=== PATIENT | female | born 1965 | race Caucasian/White ===

== ENCOUNTER 2022-04-10 10:16 | Day surgery (SDC) | payer OTHER, SELFPAY ==
[2022-04-10] VITALS (8 sets, daily range): BP systolic 138–168; BP diastolic 69–93; PULSE 69–79; RESP 11–16; TEMP 36.3–37; O2SAT 97–100; BMI 46.7
--- NOTE | ~2022-04-10 | XR_ITS ---
EXAMINATION: XR abdomen/kub 1V INDICATION: Renal stone TECHNIQUE: Supine views of the abdomen were obtained on 2 radiographs. COMPARISON: None FINDINGS: There appears to be a 2.1 cm stone of the proximal right ureter projecting between the righ t L4 and L5 transverse processes. Suture lines are noted in the right upper quadrant. There is mild l umbar spondylosis. The visualized lung bases are clear. IMPRESSION: 1. Probable 2.1 cm stone of the proximal right ureter. Reviewed, dictated and finalized at location B. [employer]
--- NOTE | 2022-04-10 08:33 | PC.NURSE ---
Report to the Outpatient Waiting Room, entrance under the green pavilion located off [facility], at time 1030 on date 04/10/22. Planned Procedure Time: 1230. Time changes happen often and if your time is changed the preop area will call you the afternoon before. - You and your visitor will be asked to self-screen and do not enter if you have any COVID symptoms. - Only one visitor is requested with a max of two and NO children visitors are allowed at this time. - The patient visitor may be requested to leave or wait in car when not with patient due to distancing restrictions. - A mask is REQUIRED within the hospital. Patients may have clear liquids (water, carbonated beverages, clear teas, apple juice) until 3 hours prior to surgery with a maximum of 20 ounces. - No food from midnight until time of surgery Take the following medications with a SIP of water the morning of surgery: SYNTHROID Medications to discontinue per physician: VITAMINS Date to take last dose: NO MORE UNTIL AFTER SURGERY Please no make-up, nail slovenian, hairspray, perfume, deodorant, or body powder the day of surgery. No jewelry (including any body piercings) or valuables the day of surgery, leave them at home. Please take a shower or bath the night before, or the morning of, surgery with an antibacterial soap. Wear comfortable, loose fitting clothing. - Jewelry must be removed prior to entering the operating room. Rings and piercings that are not removed may be cut off. - The hospital will not accept responsibility for valuables. - Please leave all valuables, including medications, at home the day of surgery. If you are going home after surgery, a licensed dolly driver must drive you home. - NO public transportation without another adult if you receive anesthesia. - We recommend that an adult stay with you for 24 hours following discharge. - We also recommend that you do not drive, make important decision, drink alcoholic beverages, or take any drugs that were not prescribed by your health care provider for at least 24 hours after your discharge time. Follow any additional instructions given to you from your surgeon. If you or anyone in your household have experienced Covid symptoms in the past week, please notify your surgeon or the nurse liaison at the phone number below for possible testing. Telephone instructions given to PT - NORM ANDERSON and asked if any additional questions and then verbalized understanding. Patient advised to call surgeon office or pre surgery nurse liaison [phone] if any additional questions.
--- NOTE | 2022-04-10 11:08 | ECG_ITS ---
Measurements Intervals [place] Rate: 70 P: 51 NV: 190 QRS: -5 QRSD: 84 T: 47 QT: 405 QTc: 437 Interpretive Statements SINUS RHYTHM NORMAL ELECTROCARDIOGRAM NO PREVIOUS ECG AVAILABLE FOR COMPARISON Electronically Signed On 04-10-2022 14:59:00 [employer] by Ramsey Calhoun M.D.
[2022-04-10 11:15] LABS: Add Urine Microscopic? YES; Appearance Urine Clear (Clear); Bilirubin Urine Negative (Negative); Blood Urine Trace-Intact (Negative); Color Urine Yellow (Yellow); Glucose Urine UA Negative (Negative); Ketones Urine Negative (Negative); Leukocyte Esterase Ur Trace LEU/UL (Negative); Nitrate Urine Negative (Negative); Protein Urine 1+ mg/dL (Negative); Specific Grav Ur 1.025 (1.001-1.035); Urobilinogen Urine 0.2 mg/dL (<2.0)
[2022-04-10 11:23] LABS: INR 0.9; Prothrombin Time 11.8 Seconds (11.1-14.7)
[2022-04-10 11:24] LABS: Anion Gap 10 mmol/L (8-16); Bacteria Urine Trace /hpf; Blood Urea Nitrogen 20 mg/dL (7-17); Calcium 9.2 mg/dL (8.4-10.2); Carbon Dioxide 22 mmol/L (22-30); Chloride 111 mmol/L (98-107); Estimated CRCL calculation 66 ml/min; Estimated Glomerular Filt Rate 57; Glucose 100 mg/dL (65-110); Mucus Urine Rare /lpf; Partial Thromboplastin Time 24.8 SECONDS (22.3-36.8); Potassium 4.2 mmol/L (3.4-5.0); RBC Urine 0-2 /hpf (0-2); Sodium 143 mmol/L (137-145); Squamous Epithelial Cell Urine Occasional /hpf (Few)
--- NOTE | 2022-04-10 11:31 | P.HP_ITS ---
History of Present Illness History of Present Illness Consent: Risks, benefits, and alternatives have been discussed and questions answered. Patient agrees to proceed with procedure. Chief complaint: ureteral Stone Narrative: Liberty Gutierrez is a 56 year old female With a history of recurrent urolithiasis. Approximately 11-12 years ago she underwent ESWL. More recently, the past several months, she has had ureteroscopy with laser lithotripsy and extraction of a fairly large right ureteral stone. She now has a residual 1 cm right renal pelvic stone and presents for right ESWL. She is aware the risk including, but not limited to, adverse cardiopulmonary events, persistent stone fragments requiring additional intervention, hematuria and perinephric hematoma. She is having intermittent moderate right flank pain without fevers chills or gross hematuria. Review of Systems Cardiovascular: Cardiovascular: Denies chest pain, Denies lightheadedness, D enies palpitations and Denies dyspnea Respiratory: Respiratory: Denies dyspnea Gastrointestinal: Gastrointestinal: Denies diarrhea, Denies nausea and Denies vomiting Genitourinary: Genitourinary: Denies hematuria and Denies dysuria Endocrine: Endocrine: Denies palpitations PMFSH Social History Social History Smoking status: Never smoker Alcohol intake: current Drinks per week: 2 Substance use: never Substance use type: does not use Living arrangements: with family Spiritual care concerns: No Meds Home Medications and Allergies Home Medications Medication Instructions Recorded Confirmed Type allopurinol 100 mg tablet 100 mg PO DAILY 04/10/22 04/10/22 History atorvastatin 40 mg tablet (Lipitor) 40 mg PO HS 04/10/22 04/10/22 History escitalopram oxalate 10 mg tablet 10 mg PO HS 04/10/22 04/10/22 History (Lexapro) furosemide 20 mg tablet 20 mg PO DAILY 04/10/22 04/10/22 History levothyroxine 200 mcg tablet 200 mcg PO DAILY 04/10/22 04/10/22 History (Synthroid) metformin 500 mg tablet 500 mg PO BID 04/10/22 04/10/22 History omega 3-lst-lxk-fish oil 1,000 mg 1 cap PO DAILY 04/10/22 04/10/22 History (120 mg-180 mg) capsule (Fish Oil) potassium citrate 15 mEq (1,620 15 meq PO DAILY 04/10/22 04/10/22 History mg) tablet,extended release Allergies Allergy/AdvReac Type Severity Reaction Status Date / Time No Known Allergies Allergy Verified 04/10/22 08:22 Vital Signs Vital Signs - 24 hr 04/10/22 11:11 Temperature 98.6 F Pulse Rate 72 Respiratory Rate 14 Blood Pressure 138/86 Pulse Oximetry 97 Oxygen Delivery Room Air Exam Const: General: no acute distress Resp: Effort & Inspection: normal respiratory effort GI: Inspection: non-distended GI Palp: No abdominal tenderness and No Guarding due to palpation present (GI) Auscultation: normal bowel sounds Assessment and Plan Assessment and plan (1) Right renal stone: Code(s): N20.0 - Calculus of kidney Status: Acute Assessment and Plan: * Right ESWL
--- NOTE | 2022-04-10 11:37 | WPDHPUPDATE1 ---
History and Physical Update Update Date/Time: 04/10/22 11:37 History and Physical has been reviewed, including an updated exam of the patient. There are NO changes in the patient's condition. Risks, benefits, and alternatives have been discussed and questions answered. Patient agrees to proceed with procedure. Given size of right renal stone (1cm) will plan cystoscopy with right ureteral stent placement at time of right ESWL.
--- NOTE | 2022-04-10 11:44 | WPDANESEPPF ---
Anes - Initial Pre Proc Eval Procedure: Operation Date: 04/10/22 12:30 Proposed Procedures p Right Extracorporeal Shock Wave Lithotripsy - Vidal Urrutia MD s Cystoscopy, Right Retrograde Pyelogram, Right Stent Placement - Vidal Urrutia MD Date/Time: 04/10/22 11:44 Surgeon: Vidal Urrutia MD Pre Op Diagnosis: ureteral Stone Patient Data Age: 56 Gender: F Height: 1.59 m Weight: 115.5 kg Last Vital Signs Temp 98.6 F 04/10/22 11:11 Pulse 72 04/10/22 11:11 Resp 14 04/10/22 11:11 BP 138/86 04/10/22 11:11 Pulse Ox 97 04/10/22 11:11 O2 Del Method Room Air 04/10/22 11:11 Allergies Allergy/AdvReac Type Severity Reaction Status Date / Time No Known Allergies Allergy Verified 04/10/22 08:22 Home Medications Medication Instructions Recorded Confirmed Type allopurinol 100 mg tablet 100 mg PO DAILY 04/10/22 04/10/22 History atorvastatin 40 mg tablet (Lipitor) 40 mg PO HS 04/10/22 04/10/22 History escitalopram oxalate 10 mg tablet 10 mg PO HS 04/10/22 04/10/22 History (Lexapro) furosemide 20 mg tablet 20 mg PO DAILY 04/10/22 04/10/22 History levothyroxine 200 mcg tablet 200 mcg PO DAILY 04/10/22 04/10/22 History (Synthroid) metformin 500 mg tablet 500 mg PO BID 04/10/22 04/10/22 History omega 2-mpp-luz-fish oil 1,000 mg 1 cap PO DAILY 04/10/22 04/10/22 History (120 mg-180 mg) capsule (Fish Oil) potassium citrate 15 mEq (1,620 15 meq PO DAILY 04/10/22 04/10/22 History mg) tablet,extended release Laboratory Tests 04/10/22 04/10/22 04/10/22 11:04 11:04 11:04 PT 11.8 Seconds Seconds (11.1-14.7) INR 0.9 APTT 24.8 SECONDS SECONDS (22.3-36.8) Sodium 143 mmol/L mmol/L (137-145) Potassium 4.2 mmol/L mmol/L (3.4-5.0) Chloride 111 mmol/L H mmol/L (98-107) Carbon Dioxide 22 mmol/L mmol/L (22-30) Anion Gap 10 mmol/L mmol/L (8-16) BUN 20 mg/dL H mg/dL (7-17) Creatinine 1.00 mg/dL mg/dL (0.7-1.0) Estim Creat Clear Calc 66 ml/min ml/min Estimated GFR 57 L (59 - ) Glucose 100 mg/dL mg/dL (65-110) Calcium 9.2 mg/dL mg/dL (8.4-10.2) Urine Color Yellow (Yellow) Urine Appearance Clear (Clear) Urine pH 6.0 (5.0-9.0) Ur Specific [place] 1.025 (1.001-1.035) Urine Protein 1+ mg/dL H mg/dL (Negative) Urine Glucose (UA) Negative mg/dL mg/dL (Negative) Urine Ketones Negative mg/dL mg/dL (Negative) Ur Blood (Man) Trace-intact (Negative) Urine Nitrate Negative (Negative) Urine Bilirubin Negative (Negative) Urine Urobilinogen 0.2 mg/dL mg/dL (<2.0) Leukocyte Esterase Rfl Trace DONNA/UL H DONNA/UL (Negative) Urine RBC 0-2 /hpf /hpf (0-2) Urine WBC 10-15 /hpf H /hpf Ur Squamous Epith Cells Occasional /hpf /hpf (Few) Urine Bacteria Trace /hpf /hpf Hyaline Casts 1-2 /lpf /lpf (None) Urine Mucus Rare /lpf /lpf Patient hx anesthesia problems: none Family hx anesthesia problems: none Results Review: All pre-operative results and documents have been reviewed as part of the pre-operative evaluation. [facility] Social History Social History Smoking status: Never smoker Alcohol intake: current Drinks per week: 2 Substance use: never Substance use type: does not use Living arrangements: with family Spiritual care concerns: No Anes - Eval Final PreProcedure Day of Procedure 04/10/22 11:44 Patient weight: morbidly obese Heart: regular rate and rhythm Lungs: clear to auscultation Airway: Mallampati scale class III Neurological: alert and oriented Last oral intake: >/= 8 hours ASA classification: III Emergent: no Anesthetic plan: proceed Anesthesia type and monitoring: general LMA and standa
[2022-04-10] MEDS: LACTATED RINGERS 1,000 ML 30 ML IV CONT (11:54)
[2022-04-10] MEDS: ceFAZolin 2 GM/D5W 50 ML 2 GM/50 ML BAG IVPB (11:57)
--- NOTE | 2022-04-10 12:23 | P.OP_ITS ---
Procedure Note - Detailed Date of Procedure 04/10/22 Pre-op Diagnosis Right ureteral stone Post-op Diagnosis Same Procedure Performed Cystoscopy, right retrograde pyelogram, right ureteral stent placement and right ESWL Surgeon Vidal Urrutia MD Anesthesia General Description of Procedure The patient was brought to the operative suite where she was placed in the frog- legged position on the Dornier lithotripter table. Flexible cystoscopy was undertaken with a 16F flexible cystoscopy. Her urethra and bladder neck were endoscopically normal. The bladder mucosa was normal and there was a single, orthotopic ureteral orifice bilaterally. A 0.035 glidewire was advanced into the right renal pelvis under fluoroscopy. Right retrograde pyelogram was obtained via angiographic catheter to ensure proper positioning of a stent. A 4.8F J-J ureteral stent was positioned with the proximal coil in the renal pelvis and the distal coil in the bladder. The patient was then repositioned in the supine position and the focal point of the lithotriptor was placed at a 2cm right ureteral calculus. A total of 3000 shocks were delivered at a power setting of 5. There appeared to be good fragmentation of the stone. The patient tolerated the procedure well and was taken to the recovery room in good condition. Drains No Pathology Yes Complications No immediate complications Condition Stable Disposition PACU
== END 2022-04-10 14:34 | disposition home or self-care (01) ==
PROVIDERS: Anesthesiology; Visit Provider Urology
PROC: (CPT 50590; principal; 2022-04-10 12:30)
DX: N20.1 Calculus of ureter (principal); Z79.84 Long term (current) use of oral hypoglycemic drugs; E66.01 Morbid (severe) obesity due to excess calories; Z68.42 Body mass index [BMI] 45.0-49.9, adult
CPT/HCPCS: 52332; 50590; 36415; 74018; 80048; 81001; 85610; 85730; 87086; 93005; A9270; C1769; C1887; C2617; J0690; J2250; J2405; J2704; J3010; J7030; J7120; Q9966